=== PATIENT | male | born 1955 | race Caucasian/White ===

== ENCOUNTER 2021-12-24 16:57 | Outpatient (CLI) | payer MEDICARE, SELFPAY ==
--- NOTE | 2021-12-24 18:05 | ECG_ITS ---
[facility] Test Date: 2021-12-24 Pat Name: Norberto Livingston Department: Room: Gender: Male Enrichment Assistant: : 1955 Requested By: DOCTOR NOT ON FILE Order Number: [id number] Nuria MD: Jaylen Diaz M.D. 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 [id number]
== END 2021-12-24 16:58 | disposition home or self-care (01) ==
PROVIDERS: PCP Family Medicine; Visit Provider Family Medicine
DX: Z00.00 Encounter for general adult medical examination without abnormal findings (principal)
CPT/HCPCS: 93005

== ENCOUNTER → 2023-09-09 14:13 | Outpatient (BNVA) | payer MEDICARE, SELFPAY | PROVIDERS: PCP Family Medicine; Visit Provider Physician Assistant | DX: M23.307 Other meniscus derangements, unspecified meniscus, left knee | CPT/HCPCS: 73560; 73565; 99203 ==

== ENCOUNTER 2023-10-15 12:57 | Outpatient (CLI) | payer MEDICARE, SELFPAY ==
--- NOTE | 2023-10-15 13:00 | MR_ITS ---
WS: [id number] MRI LEFT KNEE NONCONTRAST TECHNIQUE: Axial PD, coronal PD fat sat, coronal PD, sagittal PD, and sagittal PD fat-sat images obta ined. CLINICAL INFORMATION: Left Medial Knee COMPARISON: None. FINDINGS: Distal quadriceps and patellar tendons are intact. Moderate suprapatellar effusion. Moderate chondrom alacia patella worse in the lateral patellar facet. Fibula head is normal. Medial and lateral patella r retinaculum appear intact. Mild prepatellar soft tissue edema. ACL and PCL are intact. Moderate chondromalacia medial and lateral joint compartments. Medial and lateral collateral ligament s appear intact. Complex longitudinal bucket-handle type tear involving the posterior horn medial meniscus with blunti ng of the meniscal root. Displaced intercondylar meniscal fragment extending along the PCL. Lateral meniscus appears intact. MR/MR knee LT wo con* [id number] IMPRESSION: 1. Complex longitudinal bucket-handle tear involving the posterior horn medial meniscus with displaced fragment in the intercondylar notch extending posterio rly along the PCL. 2. Moderate tricompartmental arthritis. 3. 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 4. Moderate suprapatellar effusion. Outbridge grading: grade III: partial-thickness cartilage loss with focal ulcer ation
== END 2023-10-15 12:58 | disposition home or self-care (01) ==
LOC: RAD 12:59
PROVIDERS: PCP Family Medicine; Visit Provider Physician Assistant
DX: S83.212A Bucket-handle tear of medial meniscus, current injury, left knee, initial encounter (principal); M17.12 Unilateral primary osteoarthritis, left knee; M22.42 Chondromalacia patellae, left knee; M25.462 Effusion, left knee
CPT/HCPCS: 73721

== ENCOUNTER → 2023-11-21 11:05 | Outpatient (BNVA) | payer MEDICARE, SELFPAY | PROVIDERS: PCP Family Medicine; Visit Provider Physician Assistant | DX: M25.562 Pain in left knee (principal); S83.242A Other tear of medial meniscus, current injury, left knee, initial encounter; X58.XXXA Exposure to other specified factors, initial encounter; M23.307 Other meniscus derangements, unspecified meniscus, left knee; M17.12 Unilateral primary osteoarthritis, left knee | CPT/HCPCS: 20610; 99213; J3301 ==

== ENCOUNTER → 2024-03-25 11:15 | Outpatient (BNVA) | payer MEDICARE, SELFPAY | PROVIDERS: PCP Family Medicine; Visit Provider Physician Assistant | DX: M17.12 Unilateral primary osteoarthritis, left knee; S83.242A Other tear of medial meniscus, current injury, left knee, initial encounter; X58.XXXA Exposure to other specified factors, initial encounter | CPT/HCPCS: 99213 ==

== ENCOUNTER → 2024-09-10 10:05 | Outpatient (BNVA) | payer MEDICARE, SELFPAY | PROVIDERS: PCP Family Medicine; Visit Provider Physician Assistant | DX: M17.12 Unilateral primary osteoarthritis, left knee (principal); S83.242A Other tear of medial meniscus, current injury, left knee, initial encounter; Z71.89 Other specified counseling; X58.XXXA Exposure to other specified factors, initial encounter | CPT/HCPCS: 20610; 99213; J3301; J9999 ==

== ENCOUNTER → 2025-01-05 09:58 | Outpatient (BNVA) | payer MEDICARE, SELFPAY | PROVIDERS: PCP Family Medicine; Visit Provider Physician Assistant | DX: M17.12 Unilateral primary osteoarthritis, left knee (principal); S83.249A Other tear of medial meniscus, current injury, unspecified knee, initial encounter; M23.305 Other meniscus derangements, unspecified medial meniscus, unspecified knee; M17.11 Unilateral primary osteoarthritis, right knee; Z71.89 Other specified counseling; X58.XXXA Exposure to other specified factors, initial encounter | CPT/HCPCS: 20610; 73560; 73565; 99213; J3301; J9999 ==